=== PATIENT | male | born 1995 | race Caucasian/White ===

== ENCOUNTER 2016-12-24 01:36 | Emergency (ER) | payer OTHER ==
[~2016-12-24] VITALS: Ht 188 cm; Wt 90.0 kg
[2016-12-24 01:38] VITALS: BP 128/75; PULSE 89; RESP 20; TEMP 97.9; O2SAT 98
--- NOTE | 2016-12-24 02:55 | PD ---
HPI Chief Complaint: Alcohol/Drug Intoxication Time Seen by Provider: 02:50 Travel History International Travel<30 days: No Contact w/Intl Traveler<30days: No Traveled to known affect area: No History of Present Illness HPI 21-year-old white male visiting from [place] presents intoxicated by EMS. According to EMS the patient was found intoxicated sleeping on the balcony of a hotel. He was not able to let the police know where he had been staying. He did not appear to have the ability to care for himself at this time. Is brought into the ER. The patient here has now sobered up. He does know what hotel he stays at and what room number he isn't. The patient denies any trauma. He admits to alcohol. No other drugs. He states that he is a college student on vacation. ON LICENSE OF [facility] Past Medical History Medical History: Denies Significant Hx Tetanus Vaccination: Unknown Influenza Vaccination: No Past Surgical History Surgical History: No Previous Surgery Social History Alcohol Use: Yes Tobacco Use: No Substance Use: No Allergies-Medications (Allergen,Severity, Reaction): Coded Allergies: No Known Allergies (Unverified , 12/24/16) Reported Meds & Prescriptions Reported Meds & Active Scripts Active No Active Prescriptions or Reported Medications Review of Systems Except as stated in HPI: all other systems reviewed are Neg Physical Exam Narrative GENERAL: Well-developed, well-nourished in no apparent distress. Nontoxic appearing. Patient appears intoxicated but he is able to ambulate with a strong gait. HEAD: Normocephalic, atraumatic. EYES: Pupils equal round and reactive. Extraocular motions intact. No scleral icterus. No injection or drainage. ENT: Nose clear. Throat without erythema, tonsillar hypertrophy or exudate. Uvula midline. Airway patent. NECK: Trachea midline. Supple, nontender, moves head freely. No central bony tenderness or spasm. CARDIOVASCULAR: Regular rate and rhythm without murmurs, gallops, or rubs. RESPIRATORY: Clear to auscultation. Breath sounds equal bilaterally. No wheezes , rales, or rhonchi. GASTROINTESTINAL: Abdomen soft, non-tender, nondistended. No hepato-splenomegaly , or palpable masses. No guarding. EXTREMITIES: No clubbing, cyanosis, or edema. No joint tenderness. BACK: Nontender without deformity. No flank tenderness. NEUROLOGICAL: Awake, alert and oriented x 3 .Cranial nerves grossly intact. Motor and sensory grossly within normal limits. Normal speech. Data Data Last Documented VS Vital Signs Date Time Temp Pulse Resp B/P Pulse Ox O2 Delivery O2 Flow Rate FiO2 12/24/16 01:42 89 20 98 Room Air 12/24/16 01:38 97.9 128/75 MDM Medical Decision Making Medical Screen Exam Complete: Yes Emergency Medical Condition: Yes Medical Record Reviewed: Yes Differential Diagnosis Differential diagnoses: Alcohol intoxication, substance abuse, electrolyte abnormality, malingering Narrative Course The patient has sobered up here in the ER. He has now been up to the bathroom several times. He is ambulating with a strong gait. We have confirmed that he has a hotel room here in [facility]. The patient will be allowed to go by taxi back to his hotel room. This is alcohol intoxication Diagnosis Primary Impression: Alcohol intoxication Patient Instructions: General Instructions Departure Forms: Tests/Procedures Additional Instructions: Rest. Increase fluids. Avoid alcohol. Avoid illegal substances. Do not operate a car or any heavy machinery under the influence of alcohol or drugs. Follow-up with a medical doctor this week. Return to the ER for emergencies Med/Other Pt SpecificInfo: No Meds Exist/No RX given Scripts No Active Prescriptions or Reported Meds Disposition: 01 DISCHARGE HOME Condition: Stable Yoel Hernandez Dec 24, 2016 02:55
== END 2016-12-24 03:28 | disposition home or self-care (01) ==
LOC: NEPA 01:36
DX: F10.129 Alcohol abuse with intoxication, unspecified (principal)
CPT/HCPCS: 99284